=== PATIENT | female | born 1990 ===

== ENCOUNTER 2020-04-03 20:05 | Outpatient (CLI) | payer SELFPAY ==
[~2020-04-03] VITALS: Ht 144 cm; Wt 67.9 kg
--- NOTE | 2020-04-03 19:25 | NUR ---
HIEN AVILES presented to unit via ambulatory from ED, accompanied by /child, with c/o lower abdominal pain, dizziness, headache 23 06/04. HIEN AVILES weighed, gowned, voided, and to bed. EFHM and TOCO applied, VS taken. HIEN AVILES oriented to bed controls, call light, TV, heat, and A/C controls. Addendum: 04/03/20 at 2131 by MASSIEL WHITFIELD RN Wrong time/ Time should be 2014
[~2020-04-03 20:05] MED LIST: ACHD5005 PO; DOCU100C37 PO; IBUP-1773 PO
[2020-04-03 20:38] LABS: BILIRUBIN,URINE NEGATIVE (NEGATIVE); CLARITY,URINE CLEAR; COLOR,URINE YELLOW; GLUCOSE, URINE (UA) NEGATIVE (NEGATIVE); KETONES,URINE NEGATIVE (NEGATIVE); LEUKOCYTE ESTERASE ,URINE TRACE (NEGATIVE); NITRITE,URINE NEGATIVE (NEGATIVE); PROTEIN,URINE NEGATIVE (NEGATIVE)
--- NOTE | 2020-04-03 20:40 | NUR ---
Using language line, pt reports that she has been having left lower abdominal pain that is better when she is laying down. Headache that is better now rates pain 4/10. Dizziness that is better now.
[2020-04-03 20:45] VITALS: BP 107/64
[2020-04-03 20:57] LABS: AMORPHOUS SEDIMENT,UR RARE AMOR URATES /LPF; BACTERIA,URINE TRACE /HPF
--- NOTE | 2020-04-03 21:05 | NUR ---
called with pt's arrival and exam. u/a results given. Discharge orders received.
--- NOTE | 2020-04-03 21:26 | NUR ---
Using language line, Discharge instructions verbalized with pt along with labor precautions. Pt verbalized understanding. Pt discharged home will follow up with in clinic
--- NOTE | 2020-04-04 08:43 | Physician Query-Final Dx ---
RODRÍGUEZ SRINIVASAN 04/04/20 0843: Clinic Account Progress/Dx Physician Query: Please give diagnosis Please include # weeks gestation Date of Service Apr 03, 2020 at 20:05 RONA CAM MD 04/04/20 1618: Clinic Account Progress/Dx DIAGNOSIS: Diagnosis Left side pain 24 weeks gestation RODRÍGUEZ SRINIVASAN Apr 04, 2020 08:43 RONA CAM MD Apr 04, 2020 16:18
== END 2020-04-03 21:26 ==
LOC: WSo 20:05 → LDRP 20:08 → WSo 21:26
PROVIDERS: ATTEND Family Medicine
DX: O99.891 Other specified diseases and conditions complicating pregnancy (principal); Z3A.24 24 weeks gestation of pregnancy
CPT/HCPCS: 81000; G0463; 99213

== ENCOUNTER 2020-07-21 10:05 | Outpatient (CLI) | payer OTHER ==
[~2020-07-21] VITALS: Ht 142.3 cm; Wt 75.3 kg
[2020-07-21] MEDS ORDERED: PREN-8 PO (10:37)
== END 2020-07-21 10:40 | disposition home or self-care (01) ==
LOC: PREOP 10:05
PROVIDERS: ATTEND Obstetrics & Gynecology
DX: Z01.818 Encounter for other preprocedural examination (principal)
CPT/HCPCS: 87081

== ENCOUNTER 2020-07-25 06:05 | Inpatient (IN) | payer OTHER ==
[~2020-07-25] VITALS: Ht 144.7 cm; Wt 75.0 kg
[2020-07-25] VITALS (11 sets, daily range): BP systolic 87–109; BP diastolic 48–69
[~2020-07-25 06:05] MED LIST changes: +CITRIC ACID/SOB CIT (BICITRA) 30 ML UDC ONE; +FAMOTIDINE 20MG/2ML IV (PEPCID) ONE; +METOCLOPRAMIDE INJ 10 MG/2 ML (REGLAN) ONE; +PREN-8 PO; +ceFAZolin 2 GM IV Premixed 50 ML ONE
[2020-07-25] MEDS ORDERED: FAMOTIDINE 20MG/2ML IV (PEPCID) IV ONE (06:30)
[2020-07-25] MEDS ORDERED: METOCLOPRAMIDE INJ 10 MG/2 ML (REGLAN) IV ONE (06:30)
[2020-07-25] MEDS ORDERED: ceFAZolin 2 GM IV Premixed 50 ML IV ONE (06:30)
[2020-07-25] MEDS ORDERED: LACTATED RINGERS 1,000 ML IV PRN (06:30)
[2020-07-25] MEDS ORDERED: CITRIC ACID/SOB CIT (BICITRA) 30 ML UDC PO ONE (06:30)
[2020-07-25] MEDS: LACTATED RINGERS 1,000 ML IV PRN ×2 (06:41→08:32)
[2020-07-25 06:44] LABS: BASOPHILS % (AUTO) 0 % (0-10); EOSINOPHILS # (AUTO) 0.1 10^3/uL (0.0-0.3); EOSINOPHILS % (AUTO) 1 % (0-10); HEMATOCRIT 35 % (35-52); HEMOGLOBIN 11.4 g/dL (11.5-16.0); LYMPHOCYTES # (AUTO) 3.7 10^3/uL (1.0-4.0); LYMPHOCYTES % (AUTO) 32 % (12-44); MEAN CORPUSCULAR HEMOGLOBIN 27 pg (25-34); MEAN CORPUSCULAR HGB CONC 33 g/dL (32-36); MEAN CORPUSCULAR VOLUME 81 fL (80-99); MEAN PLATELET VOLUME 9.3 fL (9.0-12.2); MONOCYTES # (AUTO) 0.9 10^3/uL (0.0-1.0); MONOCYTES % (AUTO) 8 % (0-12); NEUTROPHILS # (AUTO) 6.7 10^3/uL (1.8-7.8); NEUTROPHILS % (AUTO) 58 % (42-75); PLATELET COUNT 360 10^3/uL (130-400); WHITE BLOOD COUNT 11.5 10^3/uL (4.3-11.0)
[2020-07-25] MEDS ORDERED: fentaNYL INJ 100 MCG/2 ML AMP ONE (07:01)
[2020-07-25] MEDS ORDERED: BUPIVACAINE 0.25% 30 ML (SENSORCAINE) VIAL ONE (07:01)
--- NOTE | 2020-07-25 07:06 | History & Physical-OB ---
OB - Chief Complaint & HPI Date/Time Date of Admission: Date of Admission: July 25, 2020 at 06:05 Date seen by a Provider: July 25, 2020 Time Seen by a Provider: 06:45 Chief Complaint/History OB-Reason for Admission/Chief: Section Hx : 4 Hx Para: 2 Expected Date of Delivery: July 27, 2020 Gestational Age in Weeks: 39 Gestational Age in Days: 5 Indication for : desires repeat Admission Nurse Assessment Rev: Yes History of Labs See [facility] labs Allergies and Home Medications Allergies Coded Allergies: No Known Drug Allergies (Unverified , 02/26/15) Home Medications Vit W-Ca,Fe,FA(<1 mg) 1 Each Tablet, 1 EACH PO DAILY, (Reported) Patient Home Medication List Home Medication List Reviewed: Yes OB - History Hx of Present Care: Yes Ultrasounds: Normal mid trimester US Obstetrical Complications: None Medical Complications: None Obstetrical History Hx Termination: Yes (MISCARRIAGE) Hx Multiple Gestation: No Hx Stillbirth: No Hx Complication: No Hx Induced Hypertens: No Hx Maternal Gestational Diabet: No Delivery History Hx Dystocia: No Hx Large For Gestational Age I: No Hx Small for Gestational Age I: No Hx Section: Yes Hx Vaginal Delivery Post C-Sec: No Hx Blood Disorders: No Adverse Rxn to Tranfusion: No Patient Past Medical History n/a Immunizations Tetanus Booster (TDap): Unknown Date of Influenza Vaccine: Dec 14, 2019 OB - Admission Exam Physical Exam Vitals: Vital Signs 07/25/20 06:23 Temp 36.6 Pulse 92 Resp 18 Pulse Ox 98 O2 Delivery Room Air HEENT: NCAT Heart: Rhythm Normal Abdomen: Gravid Extremities: Normal Reflexes: Normal Heart Rate: 130's Accelerations: Accelerations Present Decelerations: No Decelerations Short Term Variability: Present Mathematics Academic Chair Variability: Average (6-25) Contractions on Admission: 6-10 Minutes Apart Intensity: Mild Labs Laboratory Tests Test 07/25/20 06:30 Range/Units White Blood Count 11.5 H 4.3-11.0 10^3/uL Red Blood Count 4.29 3.80-5.11 10^6/uL Hemoglobin 11.4 L 11.5-16.0 g/dL Hematocrit 35 35-52 % Mean Corpuscular Volume 81 80-99 fL Mean Corpuscular Hemoglobin 27 25-34 pg Mean Corpuscular Hemoglobin Concent 33 32-36 g/dL Red Cell Distribution Width 14.7 H 10.0-14.5 % Platelet Count 360 130-400 10^3/uL Mean Platelet Volume 9.3 9.0-12.2 fL Immature Granulocyte % (Auto) 1 % Neutrophils (%) (Auto) 58 42-75 % Lymphocytes (%) (Auto) 32 12-44 % Monocytes (%) (Auto) 8 0-12 % Eosinophils (%) (Auto) 1 0-10 % Basophils (%) (Auto) 0 0-10 % Neutrophils # (Auto) 6.7 1.8-7.8 10^3/uL Lymphocytes # (Auto) 3.7 1.0-4.0 10^3/uL Monocytes # (Auto) 0.9 0.0-1.0 10^3/uL Eosinophils # (Auto) 0.1 0.0-0.3 10^3/uL Basophils # (Auto) 0.0 0.0-0.1 10^3/uL Immature Granulocyte # (Auto) 0.1 0.0-0.1 10^3/uL OB - Assessment/Plan/Diagnosis Assessment Assessment: section Admission Dx 29 yo @ 39.5 weeks Previous Admission Status: Inpatient Order (span 2 midnights) Reason for Inpatient Admission: 39 week RLTCS Plan Plan: Section DUYEN RUTH DO July 25, 2020 07:06
--- NOTE | 2020-07-25 07:10 | Discharge Inst-Women's Service ---
Discharge Inst-Women's Serv Depart Medication/Instructions New, Converted or Re-Newed RX: RX on Chart Final Diagnosis POD 2 RLTCS Problems Reviewed?: Yes Consults/Follow Up Additional Follow Up: Yes Orders/Referrals Dr. Perez in 7-[address] [facility] Activity Activity: Activity as Tolerated Driving Instructions: No Driving for 1 Week NO SMOKING: NO SMOKING Nothing Inside Vagina: No Douching, No [place], No Tampons Diet Discharge Diet: No Restrictions Symptoms to Report to : Bleeding Excessive, Pain Increased, Fever Over 101 Degrees F, Vaginal Bleeding Increase, Questions/Concerns For Any Problems or Questions: Contact Your Physician Skin/Wound Care Infection Signs and Symptoms: Increased Redness, Foul Odor of Wound, Increased Drainage, Skin Itchy or Has a Rash, Increased Swelling, Temperature Above 101 F Operative Area Clean and Dry: Keep Incision Clean/Dry Stitches/[place]/Dermabond: Dermabond, Care of Stitches Bathing Instructions: DUYEN Ibarra DO July 25, 2020 07:10
[2020-07-25] MEDS ORDERED: IBUP-844 PO (07:11)
[2020-07-25] MEDS ORDERED: ACHD5005 PO (07:11)
[2020-07-25] MEDS ORDERED: DCS100C PO (07:11)
[2020-07-25] MEDS ORDERED: MEASLES,MUMPS,RUBELLA 1 EA INJ SC SCH (07:15)
[2020-07-25] MEDS ORDERED: TETANUS,DIPTH,PERTUSS P/F (BOOSTRIX) 0.5 ML VIAL IM SCH (07:15)
[2020-07-25] MEDS ORDERED: ONDANSETRON 4 MG/2 ML (SDV) Z0FRAN IVP PRN ×2 (07:15→09:00)
[2020-07-25] MEDS: KETOROLAC 30 MG/ML VIAL IV SCH ×3 (07:15→20:09)
[2020-07-25] MEDS ORDERED: PHENYLEPHRINE 100 MCG/ML 10 ML (ANESTHESIA) SYR ONE (07:26)
[2020-07-25] MEDS ORDERED: diphenhydrAMINE 50 MG/ML INJ (BENADRYL) IV PRN (09:00)
[2020-07-25] MEDS: DOCUSATE SODIUM 100 MG (COLACE) CAP PO SCH ×2 (09:00→20:08)
[2020-07-25] MEDS ORDERED: NALOXONE 0.4 MG/ML 1 ML (NARCAN) VIAL IV PRN ×2 (09:00)
[2020-07-25] MEDS ORDERED: ONDANSETRON 4 MG/2 ML (SDV) Z0FRAN IV PRN (09:00)
[2020-07-25] MEDS ORDERED: morphine INJ 10 MG/ML 1ML (SYR OR VIAL) IVP ONE (09:00)
[2020-07-25] MEDS ORDERED: METOCLOPRAMIDE INJ 10 MG/2 ML (REGLAN) IV PRN (09:00)
--- NOTE | 2020-07-25 10:05 | OPERATIVE REPORT ---
DATE OF SERVICE: PREOPERATIVE DIAGNOSES: 1. A 29-year-old G4, P2, at 39 weeks and 5 days gestation. 2. Previous section. POSTOPERATIVE DIAGNOSES: 1. A 29-year-old G4, P2, at 39 weeks and 5 days gestation. 2. Previous section. PROCEDURE: Repeat low transverse section. SURGEON: Kaden Ruth DO SEAWEED HARVESTER: Dr. Mu Lyon, who was necessary for manipulation and retraction throughout the procedure. ANESTHESIA: Spinal. ESTIMATED BLOOD LOSS: 500 mL. URINE OUTPUT: 50 mL clear at the end of procedure. FLUIDS: A 1200 mL lactated Ringer's solution. FINDINGS: A live male infant weighing 8 pounds 3 ounces, Apgars of 8 and 9. Grossly normal appearing uterus, bilateral fallopian tubes and ovaries. SPECIMEN SENT: None. INDICATIONS FOR PROCEDURE: This 29-year-old female is a patient who had sought care with Dr. Lyon at the [facility]. Her care was uncomplicated with the exception of needing repeat . She was consulted to me around the end of the second trimester to schedule and discussed repeat . Risks of procedure were discussed with the patient in detail at this visit including risk of bleeding, infection, damage to surrounding structures including, but not limited to bowel, bladder, ureter, kidneys, possible need for operation, postoperative complications that may occur, risk from anesthesia and even . After everything was discussed with the patient in detail, consent was obtained in the preoperative area and the patient was taken to the operating room. OPERATIVE REPORT IN DETAIL: Once in the operating room, spinal analgesia was found to be adequate. She was placed in supine position with leftward tilt, prepped and draped in normal sterile fashion. A timeout was performed and anesthesia was tested. I then make a Pfannenstiel skin incision through the previously existing scar using knife and carried down to underlying fascia using Bovie cautery. The fascial incision extended laterally using Bovie cautery. Superior aspect of fascial incision was then grasped with Katheryn clamps, tented up and dissected off the underlying rectus muscle. Inferior aspect of fascial incision was then grasped with Katheryn clamps, tented up and dissected off the underlying rectus muscles. Rectus muscles were then dissected down the midline, which exposed the peritoneum, which I entered bluntly and extended using blunt traction. Riaz ring retractor was placed in the peritoneal incision, which offers excellent lateral sidewall retraction. I identified the lower uterine segment, which was found to be thinned out and make a low transverse incision to the vesicouterine peritoneum and bluntly dissected off the lower uterine segment, creating a bladder flap. I proceeded with myotomy until membranes were visualized, at which point I extended the uterine incision laterally and superiorly using bandage scissors. Amniotomy was then performed using Allis clamp. Clear fluid was noted. was found in vertex presentation. With gentle fundal pressure, the 's head was elevated up to the incision where it was delivered through the incision. The nares and oropharynx were bulb suctioned. Anterior and posterior shoulders were delivered. was then brought to the operative field, where the cord was doubly clamped and cut and infant was taken off the field for further attendance by Dr. Lyon. Cord blood was collected. Three-vessel cord with intact placenta was delivered spontaneously thereafter. IV Pitocin was initiated to facilitate uterine contraction. Uterine fundus confirmed by manual massage. The uterus was then exteriorized and cleared off endometrial clots and debris. I then proceeded with closing the uterine incision using 0 Vicryl suture in running locked fashion. Second layer of imbricating 0 Monocryl was placed. Excellent hemostasis was noted after doing this. I then placed the uterus back in the pelvis and copiously irrigated the pelvis using normal saline. There was no active bleeding noted from any of my dissection planes. I placed Interceed antiadhesive over my low transverse incision. I removed the Riaz ring retractor and then proceeded with closing the peritoneum and rectus muscles in one layer using 3-0 Vicryl suture in a running fashion. The fascia was reapproximated using 0 Vicryl suture in running fashion. The skin reapproximated using 4-0 Monocryl in a running subcuticular. Dermabond was applied to incision and sterile dressing was adhesed with white tape. Two grams of Ancef were given preoperatively for infection prophylaxis. Lap and sponge counts were correct at the end of the procedure. Instrument counts correct as well. Job ID: [id number] DocumentID: [id number] Dictated Date: 07/25/2020 08:07:22 Sheet Metal Worker Supervisor Date: 07/25/2020 10:04:10 Dictated By: KADEN RUTH DO
[2020-07-25] MEDS: OXYTOCIN PRE-MIX DRIP 500 ML IV SCH ×2 (11:10→11:15)
[2020-07-25] MEDS: CATHETER FLUSH 10 ML SYR IV SCH (14:00)
[2020-07-26 00:08] VITALS: BP 100/62
[2020-07-26] MEDS: HYDROcodone/APAP 5 MG/325 MG (LORTAB) TAB PO PRN ×2 (01:03→17:48)
[2020-07-26] MEDS: KETOROLAC 30 MG/ML VIAL IV SCH (02:04)
[2020-07-26 05:33] VITALS: BP 102/59
[2020-07-26 05:34] LABS: BASOPHILS % (AUTO) 0 % (0-10); EOSINOPHILS % (AUTO) 0 % (0-10); HEMATOCRIT 31 % (35-52); LYMPHOCYTES # (AUTO) 2.9 10^3/uL (1.0-4.0); LYMPHOCYTES % (AUTO) 24 % (12-44); MEAN CORPUSCULAR HEMOGLOBIN 27 pg (25-34); MEAN CORPUSCULAR HGB CONC 33 g/dL (32-36); MEAN CORPUSCULAR VOLUME 81 fL (80-99); MEAN PLATELET VOLUME 9.2 fL (9.0-12.2); MONOCYTES # (AUTO) 0.8 10^3/uL (0.0-1.0); MONOCYTES % (AUTO) 7 % (0-12); NEUTROPHILS # (AUTO) 8.3 10^3/uL (1.8-7.8); NEUTROPHILS % (AUTO) 69 % (42-75); PLATELET COUNT 299 10^3/uL (130-400); WHITE BLOOD COUNT 12.1 10^3/uL (4.3-11.0)
[2020-07-26] MEDS ORDERED: IBUPROFEN 600 MG (MOTRIN) TAB PO ONE (07:55)
[2020-07-26 08:06] VITALS: BP 98/55
[2020-07-26] MEDS: IBUPROFEN 600 MG (MOTRIN) TAB PO SCH ×3 (08:08→21:25)
[2020-07-26] MEDS: DOCUSATE SODIUM 100 MG (COLACE) CAP PO SCH ×2 (08:08→21:25)
--- NOTE | 2020-07-26 08:31 | Postpartum Progress Note ---
Note Note Day # 1 Subjective: Patient is without complaints. Ambulating, voiding. Tolerating a regular diet without nausea or vomiting. Normal lochia. Pain is well controlled with oral pain medications. Objective: Physical Exam: General - Alert and oriented, no apparent distress Abdomen - Soft, appropriately tender to palpation, non-distended, fundus firm at umbilicus Extremities - no edema, negative Laura's bilaterally Incision- c/d/i Assessment: POD 1 RLTCS Acute blood loss anemia Plan: Routine care. Encourage breast feeding. Encourage ambulation. Ferrous sulfate supplementation. Plan for discharge tomorrow Vitals - Labs Vital Signs - I&O Vital Signs Date Time Temp Pulse Resp B/P (MAP) Pulse Ox O2 Delivery O2 Flow Rate FiO2 07/26/20 08:06 36.3 86 18 98/55 (69) 97 Room Air 07/26/20 05:33 36.4 83 18 102/59 (73) 97 Room Air 07/26/20 00:08 36.5 80 18 100/62 (75) 97 Room Air 07/25/20 20:07 36.9 91 18 101/55 (70) 97 Room Air 07/25/20 16:34 37.6 80 16 96/52 (67) 97 Room Air 07/25/20 14:16 37.5 85 16 92/50 (64) 98 Room Air 07/25/20 10:00 36.9 66 16 92/58 (69) 100 Room Air 07/25/20 09:25 Room Air 07/25/20 09:25 36.5 16 98/60 (73) 100 Room Air 07/25/20 09:10 36.4 16 93/60 (71) 99 Room Air 07/25/20 09:10 Room Air 07/25/20 08:55 Room Air 07/25/20 08:55 36.1 16 97/56 (70) 99 Room Air 07/25/20 08:40 Room Air 07/25/20 08:40 36.4 16 95/51 (66) 100 Room Air 07/25/20 08:34 Room Air 07/25/20 08:34 16 92/53 (66) 100 Room Air l I & O 07/26/20 07:00 Intake Total 50 ml Output Total 550 ml Balance -500 ml Labs Laboratory Tests 5/29/21 05:24: White Blood Count 12.1H, Red Blood Count 3.78L, Hemoglobin 10.0L, Hematocrit 31L , Mean Corpuscular Volume 81, Mean Corpuscular Hemoglobin 27, Mean Corpuscular Hemoglobin Concent 33, Red Cell Distribution Width 14.9H, Platelet Count 299, Mean Platelet Volume 9.2, Immature Granulocyte % (Auto) 1, Neutrophils (%) (Auto) 69, Lymphocytes (%) (Auto) 24, Monocytes (%) (Auto) 7, Eosinophils (%) (Auto) 0, Basophils (%) (Auto) 0, Neutrophils # (Auto) 8.3H, Lymphocytes # (Auto) 2.9, Monocytes # (Auto) 0.8, Eosinophils # (Auto) 0.0, Basophils # (Auto) 0.0, Immature Granulocyte # (Auto) 0.1 DUYEN RUTH DO July 26, 2020 08:31
[2020-07-26 14:57] VITALS: BP 108/62
--- NOTE | 2020-07-26 15:33 | Anesthesia-Regional Post-Op ---
Regional Patient Condition Mental Status: Alert, Oriented x3 Circulation: Same as Pre-Op Headache: Absent Sensation: Full Recovery Motor Block: Absent Post Op Complications Complications None Follow Up Care/Instructions Patient Instructions None needed. Anesthesia/Patient Condition Patient is doing well, no complaints, stable vital signs, no apparent adverse anesthesia problems. No complications reported per nursing. SKYLER MCQUEEN CRNA July 26, 2020 15:33
[2020-07-26 21:23] VITALS: BP 94/52
[2020-07-27] MEDS: IBUPROFEN 600 MG (MOTRIN) TAB PO SCH ×2 (03:01→09:45)
[2020-07-27 03:03] VITALS: BP 107/63
[2020-07-27 09:45] VITALS: BP 107/57
[2020-07-27] MEDS: DOCUSATE SODIUM 100 MG (COLACE) CAP PO SCH (09:45)
--- NOTE | 2020-07-27 09:45 | Postpartum Progress Note ---
Note Note Day # 2 Subjective: Patient is without complaints. Ambulating, voiding. Tolerating a regular diet without nausea or vomiting. Normal lochia. Pain is well controlled with oral pain medications. Objective: Physical Exam: General - Alert and oriented, no apparent distress Abdomen - Soft, appropriately tender to palpation, non-distended, fundus firm at umbilicus Extremities - no edema, negative Laura's bilaterally Incision- c/d/i Assessment: POD 2 RLTCS Acute blood loss anemia Plan: Routine care. Encourage breast feeding. Encourage ambulation. Ferrous sulfate supplementation. Plan for discharge today Vitals - Labs Vital Signs - I&O Vital Signs Date Time Temp Pulse Resp B/P (MAP) Pulse Ox O2 Delivery O2 Flow Rate FiO2 07/27/20 03:03 36.6 76 18 107/63 (78) 97 Room Air 07/26/20 21:23 36.9 91 18 94/52 (66) 98 Room Air 07/26/20 14:57 36.4 94 18 108/62 (77) Room Air DUYEN RUTH DO July 27, 2020 09:44
[2020-07-27 10:55] VITALS: BP 107/57
[2020-07-27] MEDS: CATHETER FLUSH 10 ML SYR IV SCH (11:39)
== END 2020-07-27 10:55 | disposition home or self-care (01) | DRG 787 ==
LOC: LDRP 06:05
PROVIDERS: ADMIT Obstetrics & Gynecology; ATTEND Obstetrics & Gynecology
PROC: 10D00Z1 Extraction of Products of Conception, Low, Open Approach (ICD-10-PCS; principal; 2020-07-25 07:20)
DX: O34.211 Maternal care for low transverse scar from previous cesarean delivery (principal); D62 Acute posthemorrhagic anemia; Z3A.39 39 weeks gestation of pregnancy; Z37.0 Single live birth; O90.81 Anemia of the puerperium
CPT/HCPCS: 36415; 85025; 86850; 86900; 86901; 90707; 94664